=== PATIENT | male | born 1955 | race African-American/Black ===

== ENCOUNTER 2016-07-20 12:34 | Emergency (ER) | payer OTHER ==
[~2016-07-20] VITALS: Ht 167.6 cm; Wt 85.9 kg
[~2016-07-20 12:34] MED LIST: BACTRIM,SEPT1 TABLET PO; CELEXA10 MG PO; EPZICOM1 TABLET PO; KEPPRA750 MG PO; NAPROSYN250 MG PO; NORVASC10 MG PO; PREZISTA800 MG PO; PROPRANOLOL HCL40 MG PO; ROBAXIN500 MG PO; SENNA8.6 MG PO
[2016-07-20 15:37] LABS: HEMATOCRIT 22.7 % (38.0-50.0); MCH 25.6 PG (29.0-34.0); MCHC 35.7 G/DL (30.0-36.0); MCV 71.8 FL (86-99); RBC DIS.WIDTH-CV 28.6 % (11.8-14.6); RBC DIS.WIDTH-SD 68.6 % (39-53); RED BLOOD COUNT 3.16 M/uL (4.00-5.50)
[2016-07-20 15:56] LABS: CHLORIDE 114 mEq/L (99-109); SODIUM 137 mEq/L (136-147)
[2016-07-20 15:58] LABS: GLUCOSE 99 mg/dL (70-99)
[2016-07-20 16:00] LABS: ANION GAP 5 MEQ/L (2-14)
[2016-07-20 16:02] LABS: ALKALINE PHOSPHATASE 76 IU/L (3-129); GFR ESTIMATE (CALCULATED) 57 mL/min/
[2016-07-20 16:03] LABS: UREA NITROGEN (BUN) 19 mg/dL (9-23)
[2016-07-20 16:04] LABS: DIRECT BILIRUBIN 0.5 mg/dL (0.0-0.3)
[2016-07-20 16:05] LABS: LIPASE 128 U/L (1.0-51.0)
[2016-07-20 16:08] LABS: TROP-I INTERPRETATION NEGATIVE; TROPONIN-I < 0.01 ng/mL (0.0-0.30)
[2016-07-20 16:24] LABS: PLATELET COUNT UNABLE TO REPORT K/uL (156-360)
[2016-07-20 19:38] VITALS: BP 128/71
== END 2016-07-20 19:50 | disposition short-term general hospital (02) ==
LOC: EME 12:34
PROVIDERS: Emergency Medicine
DX: I63.9 Cerebral infarction, unspecified (principal); K85.90 Acute pancreatitis without necrosis or infection, unspecified; E11.9 Type 2 diabetes mellitus without complications; I10 Essential (primary) hypertension; R56.9 Unspecified convulsions; Z21 Asymptomatic human immunodeficiency virus [HIV] infection status; B19.20 Unspecified viral hepatitis C without hepatic coma; Z86.73 Personal history of transient ischemic attack (TIA), and cerebral infarction without residual deficits; Z87.891 Personal history of nicotine dependence
CPT/HCPCS: 70450; 74176; 80048; 80076; 82140; 83605; 83690; 84484; 85027; 87040; 93005; 99281; 99284; J2270; J2405